=== PATIENT | female | born 1995 | race Caucasian/White ===

== ENCOUNTER 2020-11-04 22:30 | Inpatient (IN) | payer MEDICAID ==
[~2020-11-04] VITALS: Ht 162.6 cm; Wt 59.9 kg
[2020-11-04 22:51] VITALS: Ht 162.6 cm; Wt 59.9 kg
[2020-11-04 23:36] LABS: BASOPHIL % 0.1 % (0.2-1.3); PLATELET COUNT 349 x10^3mcL (179-408); RED CELL DISTRIBUTION WIDTH 12.7 % (12.3-17.7)
[2020-11-04 23:46] LABS: CALCIUM 7.4 mg/dL (8.5-10.1); CARBON DIOXIDE 20.7 mmol/L (21-32); CREATININE SERUM 1.7 mg/dL (0.6-1.0); POTASSIUM SERUM 4.2 mmol/L (3.5-5.1)
[2020-11-04 23:51] LABS: BILIRUBIN TOTAL 0.5 mg/dL (0.20-1.00)
[2020-11-04 23:54] LABS: TOTAL PROTEIN, SERUM 5.4 g/dL (6.4-8.2)
[2020-11-05 09:07] VITALS: BP 93/56
[2020-11-05 10:18] LABS: BASOPHIL % 0.2 % (0.2-1.3); PLATELET COUNT 220 x10^3mcL (179-408); RED CELL DISTRIBUTION WIDTH 12.4 % (12.3-17.7)
[2020-11-05 12:06] VITALS: BP 101/65
[2020-11-05 15:04] LABS: UA SPECIFIC GRAVITY >=1.030 (1.005-1.035); microscopic required? YES; urine erythrocyte 3+ (NEGATIVE)
[2020-11-05 15:32] LABS: AMPHETAMINE QUAL UR NONE DETECTED (See below)
[2020-11-05 16:38] VITALS: BP 93/48
[2020-11-05 22:01] VITALS: BP 98/53
[2020-11-06 05:08] VITALS: BP 98/50
[2020-11-06 08:21] LABS: CALCIUM 7.3 mg/dL (8.5-10.1); CARBON DIOXIDE 25.5 mmol/L (21-32); CHLORIDE SERUM 108 mmol/L (98-107); CREATININE SERUM 0.7 mg/dL (0.6-1.0); GFR1 > 60 mL/min; GLUCOSE SERUM 97 mg/dL (74-106); POTASSIUM SERUM 3.8 mmol/L (3.5-5.1); SODIUM SERUM 141 mmol/L (136-145)
[2020-11-06 09:19] VITALS: BP 95/52
[2020-11-06 09:52] LABS: BASOPHIL % 0.2 % (0.2-1.3); PLATELET COUNT 186 x10^3mcL (179-408); RED CELL DISTRIBUTION WIDTH 12.4 % (12.3-17.7)
[2020-11-06 11:04] LABS: rbc morphology (normal/abnorm) NORMAL (NORMAL)
[2020-11-06 12:13] VITALS: BP 102/60
[2020-11-06] MEDS ORDERED: COL100 PO (14:30)
[2020-11-06] MEDS ORDERED: TYL325 PO (14:30)
[2020-11-06] MEDS ORDERED: FERROUSAL325 MG PO (17:08)
[2020-11-06 17:14] VITALS: BP 103/56
== END 2020-11-06 20:36 | disposition home or self-care (01) | DRG 545 ==
LOC: ED 22:30 → MU 11-05 00:30 → DU 11-05 00:30 → MU 11-05 04:21
PROVIDERS: Emergency Medicine; Obstetrics & Gynecology; ADMIT Family Medicine; ATTEND Family Medicine
PROC: 0UB64ZZ Excision of Left Fallopian Tube, Percutaneous Endoscopic Approach (ICD-10-PCS; 2020-11-05)
PROC: 30233N1 Transfusion of Nonautologous Red Blood Cells into Peripheral Vein, Percutaneous Approach (ICD-10-PCS; principal; 2020-11-05 01:00)
DX: O00.90 Unspecified ectopic pregnancy without intrauterine pregnancy (principal); N17.0 Acute kidney failure with tubular necrosis; E43 Unspecified severe protein-calorie malnutrition; D62 Acute posthemorrhagic anemia; E83.51 Hypocalcemia; O26.831 Pregnancy related renal disease, first trimester; O26.891 Other specified pregnancy related conditions, first trimester; O99.011 Anemia complicating pregnancy, first trimester; Z68.22 Body mass index [BMI] 22.0-22.9, adult; Z88.0 Allergy status to penicillin
CPT/HCPCS: 87491; 87591; G0378; J1885; J2175; J2250; J2405; J3010; J3490; J7030; J7040; P9016

== ENCOUNTER 2020-12-16 20:36 | Emergency (ER) | payer MEDICAID ==
[~2020-12-16] VITALS: Ht 152.4 cm; Wt 60.3 kg
[~2020-12-16 20:36] MED LIST: COL100 PO; FERROUSAL325 MG PO; TYL325 PO
[2020-12-16 20:50] VITALS: Ht 152.4 cm; Wt 60.3 kg
[2020-12-16 23:38] VITALS: BP 127/83
== END 2020-12-16 23:38 | disposition home or self-care (01) ==
LOC: ED 20:36
DX: S83.91XA Sprain of unspecified site of right knee, initial encounter (principal); Z88.0 Allergy status to penicillin; Z98.890 Other specified postprocedural states; X50.0XXA Overexertion from strenuous movement or load, initial encounter; Y93.89 Activity, other specified; Y92.89 Other specified places as the place of occurrence of the external cause; Y99.8 Other external cause status
CPT/HCPCS: J1885